=== PATIENT | female | born 1955 | race Caucasian/White ===

== ENCOUNTER 2019-06-10 07:01 | Emergency (ER) | payer MEDICARE, OTHER ==
[2019-06-10 07:14] VITALS: BP 122/72
--- NOTE | 2019-06-10 07:44 | UC ---
Skin Complaint HPI - HPI Summary HPI Summary: 4 days ago she felt something sting her hit her left lower leg. Yesterday it started to get more painful and swollen. - History of Current Complaint Chief Complaint: [employer] Time Seen by Provider: 06/10/19 07:18 Stated Complaint: SKIN ISSUE Hx Obtained From: Patient Onset/Duration: Sudden Onset Skin Exposure Onset/Duration: Days Ago Timing: Constant Onset Severity: Mild Current Severity: Moderate Pain Intensity: 8 Aggravating Factor(s): Touch, Other - Dorsiflexing the foot Alleviating Factor(s): Nothing Associated Signs & Symptoms: Positive: Negative Related History: Insect Bite/Sting - Allergy/Home Medications Allergies/Adverse Reactions: Allergies Allergy/AdvReac Type Severity Reaction Status Date / Time No Known Allergies Allergy Verified 06/10/19 07:14 Home Medications: Home Medications Ascorbic Acid TAB* [Vitamin C TAB*] 500 mg PO DAILY 06/10/19 [History Confirmed 06/10/19] Cholecalciferol TAB* [Vitamin D TAB*] 1 tab PO DAILY 06/10/19 [History Confirmed 06/10/19] Multivitamins/Minerals TAB* [Theragran/minerals TAB*] 1 tab PO DAILY 06/10/19 [ History Confirmed 06/10/19] PMH/Surg Hx/FS Hx/Imm Hx Previously Healthy: Yes - Surgical History Surgical History: Yes Surgery Procedure, Year, and Place: hysterectomy - Family History Known Family History: Positive: Hypertension - mother Negative: Cardiac Disease, Diabetes - Social History Alcohol Use: Daily Alcohol Amount: one glass wine daily Substance Use Type: None Smoking Status (MU): Never Smoked Tobacco Have You Smoked in the Last Year: No Review of Systems All Other Systems Reviewed And Are Negative: Yes Constitutional: Positive: Negative Skin: Positive: Bruising Physical Exam - Summary Physical Exam Summary: She is nontoxic in appearance with stable vitals Triage Information Reviewed: Yes Appearance: Well-Appearing Vital Signs: Initial Vital Signs Temp 98.2 F 06/10/19 07:06 Pulse 63 06/10/19 07:06 Resp 16 06/10/19 07:06 BP 122/72 06/10/19 07:06 Pulse Ox 99 06/10/19 07:06 Vital Signs Reviewed: Yes Skin Exam: Other - There is a small tender erythematous area on her anterior mid barth. It surrounded by some mild erythema and swelling that is also mildly tender. Course/Dx - Course Course Of Treatment: I'm not sure what the original insult was or if of stinger or such remains in the wound, I don't see any sign of anything. She does have some new swelling and tenderness and erythema around it and this likely represents infection. I recommended topical antibiotic but will give her prescription for Keflex [place] in case she needs it. - Diagnoses Provider Diagnosis: Cellulitis Discharge - Sign-Out/Discharge Documenting (check all that apply): Patient Departure All imaging exams completed and their final reports reviewed: No Studies - Discharge Plan Condition: Stable Disposition: HOME Patient Education Materials: Cellulitis (ED) Referrals: Yandy Parry MD [Primary Care Provider] - - Billing Disposition and Condition Condition: STABLE Disposition: Home
== END 2019-06-10 07:47 | disposition home or self-care (01) ==
LOC: UCEAST 07:01
DX: L03.116 Cellulitis of left lower limb (principal)
CPT/HCPCS: 99212; G0463